=== PATIENT | male | born 2000 | race Hispanic/Latino ===

== ENCOUNTER 2020-05-27 10:14 | Emergency (ER) | payer OTHER | END 2020-05-27 11:30 | disposition home or self-care (01) | LOC: EDH 10:14 | DX: Z04.1 Encounter for examination and observation following transport accident (principal); Z72.0 Tobacco use; V49.09XA Driver injured in collision with other motor vehicles in nontraffic accident, initial encounter; Y93.89 Activity, other specified; Y92.89 Other specified places as the place of occurrence of the external cause; Y99.8 Other external cause status ==